=== PATIENT | female | born 1930 | race Caucasian/White ===

== ENCOUNTER 2018-06-01 23:30 | Inpatient (IN) | payer BC ==
--- NOTE | 2018-06-01 23:35 | PDOC ---
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 The patient reports she was trying to ambulate up the outdoor stairs of her daughters home when she missed a stair leading to the fall, denies dizziness or vertigo. The patient states she tried to catch herself and ended up twisting, landing on her back, denies LOC or head injury. The patient reports pain to the R. hip, that's aggravated by the movement of the leg. Denies neck pain. Denies numbness, tingling or loss of sensation. The patient reports an additional concern of new onset of scattered bruising to the B/l upper extremity within the last few weeks. The patient denies a prior history of easy bruising or previous falls. Allergies: NKDA PCP: None reported. <Leandra Adair - Last Filed: 06/02/18 00:21> <Marianna Ann - Last Filed: 06/02/18 03:11> - General Chief Complaint: Injury Stated Complaint: LEG PAIN Time Seen by Provider: 06/01/18 23:35 Past History <Leandra Adair - Last Filed: 06/02/18 00:21> <Marianna Ann - Last Filed: 06/02/18 03:11> - Past Medical History Allergies/Adverse Reactions: Allergies Allergy/AdvReac Type Severity Reaction Status Date / Time No Known Allergies Allergy Verified 06/01/18 23:33 Review of Systems - Review of Systems Able to Perform ROS?: Yes Comments:: 06/02/18 00:09 CONSTITUTIONAL: Absent: fever, no chills, no fatigue EYES: Absent: visual changes ENT: Absent: ear pain, no sore throat CARDIOVASCULAR: Absent: chest pain, no palpitations RESPIRATORY: Absent: cough, no SOB GI: Absent: abdominal pain, no nausea, no vomiting, no constipation, no diarrhea GENITOURINARY: Absent: dysuria, no frequency, no hematuria MUSKULOSKELETAL: (+) Chronic back pain. R. Hip pain worse with movement. Absent: no arthralgia, no myalgia SKIN: Absent: rash NEURO: Absent: headache <Leandra Adair - Last Filed: 06/02/18 00:21> *Physical Exam - Physical Exam Comments: 06/02/18 00:13 GENERAL: The patient is awake, alert, and fully oriented, in no acute distress. HEAD: Normal with no signs of trauma. EYES: Pupils equal, round and reactive to light, extraocular movements intact, sclera anicteric, conjunctiva clear with no pallor. ENT: Ears normal, nares patent, oropharynx clear without exudates. Moist mucous membranes. NECK: Normal range of motion, supple without lymphadenopathy, JVD, or masses. LUNGS: Breath sounds equal, clear to auscultation bilaterally. No wheeze/ crackles. HEART: Regular rate and rhythm, normal S1 and S2 without murmur or rub. ABDOMEN: Soft/nontender/nondistended. BS wnl. No guarding or rebound. No palpable masses. No hepatosplenomegaly. EXTREMITIES: (+) R. lower extremity: Moderate tenderness to palpation of the R. hip joint anteriorly. Pain with abduction and internal rotation of the R. leg. R. leg shortened compared to the L. leg. Rest of the extremity: Normal range of motion, no edema. No clubbing or cyanosis. No cords, erythema, or tenderness. NEUROLOGICAL: Cranial nerves II through XII grossly intact. Normal speech. PSYCH: Normal mood, normal affect. SKIN: Warm, dry with normal capillary refill. Scattered superficial ecchymosis of the R. and L. upper/lower extremities. No petechiae or rash evident. <Leandra Adair - Last Filed: 06/02/18 00:21> ED Treatment Course - LABORATORY CBC & Chemistry Diagram: 06/02/18 00:30 06/02/18 00:30 <Marianna Ann - Last Filed: 06/02/18 03:11> Progress Note - Progress Note Progress Note: Documentation has been prepared under my direction and personally reviewed by me in its entirety. I attest that this documented accurately reflects all work, treatment, procedures and medical decision making performed by me. <Marianna Ann - Last Filed: 06/02/18 03:11> Medical Decision Making - Medical Decision Making As noted above, this 88-year-old woman presents by ambulance with a history of trip and fall just prior to presentation: She was climbing up outdoor stairs of her daughters home when she lost her balance and fell on right hip area.No head/ neck injury. She presents with marked pain on movement of the right hip. Past medical history notable for mitral valve repair approximately 8 years ago ( [facility]), overactive bladder, macular degeneration of the left eye. No other significant medical problems are noted. No smoking for approx 50 years; No EtOH or other recreational drug use Exam as noted with marked tenderness of the right anterior hip joint and shortening of the right leg. Right hip/pelvic x-ray notable for displaced femoral neck (vs subcapital) hip fracture. Chest x-ray reveals no significant acute process Laboratory evaluation notable for normal CBC; chemistry profile reveals BUN of 50 and creatinine 1.6; random glucose is 131; otherwise, chemistry profile is unremarkable. Twelve-lead electrocardiogram performed: Normal sinus rhythm at 86 bpm; axis, wave forms and intervals are all normal. Rare PACs are noted Dr. Reji Antoine, covering for Dr Armenta orthopedic service, contacted and case discussed with him. Patient will be seen in the morning [facility] service contacted. 06/02/18 02:52 Case discussed with of [facility] service. Patient will be admitted (inpatient) to the service. 06/02/18 03:02 Was informed by NITISH Guzman that [facility] service is not director of collections for service medical admissions this week (patient's PCP is not in the local area). Case discussed with Dr. Luo, who is director of collections for service medical admissions.Pt admitted to her service. <Marianna Ann - Last Filed: 06/02/18 03:11> *DC/Admit/Observation/Transfer - Attestations Scribe Attestion: 06/02/18 00:13 Documentation prepared by Leandra Adair, acting as medical record librarian for Marianna Ann MD. <Leandra Adair - Last Filed: 06/02/18 00:21> - Discharge Dispostion Decision to Admit order: Yes <Marianna Ann - Last Filed: 06/02/18 03:11> Diagnosis at time of Disposition: Hip fracture, right Qualifiers: Encounter type: initial encounter Fracture type: closed Qualified Code(s): S72.001A - Fracture of unspecified part of neck of right femur, initial encounter for closed fracture - Discharge Dispostion Condition at time of disposition: Stable
[2018-06-02] MEDS ORDERED: HYDROmorphone HCL CARPU-JECT 1 MG/1 ML DISP.SYRIN IVPUSH ONE ×4 (00:19→02:53)
[2018-06-02] MEDS ORDERED: HYDROmorphone HCL CARPU-JECT 1 MG/1 ML DISP.SYRIN ONE ×2 (00:30→02:23)
[2018-06-02 01:32] LABS: BASO % 0.3 % (0-2.0); EOS % 2.7 % (0-4.5); HEMATOCRIT 38.9 % (32.4-45.2); LYMPH % 17.2 % (8-40); MCH 32.2 pg (25.7-33.7); MCHC 33.4 g/dl (32.0-36.0); MEAN CELL VOLUME 96.4 fl (80-96); MEAN PLT VOLUME 10.9 fl (7.5-11.1); MONO % 9.7 % (3.8-10.2); NEUT % 70.1 % (42.8-82.8); PLATELET COUNT 155 K/MM3 (134-434); RBC 4.04 M/mm3 (3.60-5.2); RDW 12.9 % (11.6-15.6); WHITE BLOOD COUNT 6.4 K/mm3 (4.0-10.0)
[2018-06-02 01:33] LABS: INR 0.98 (0.83-1.09); PROTHROMBIN TIME (PATIENT) 11.1 SEC (9.7-13.0)
[2018-06-02 01:43] LABS: ALBUMIN 3.9 g/dl (3.4-5.0); ALK PHOS 87 U/L (45-117); ANION GAP 7 (8-16); BILIRUBIN,TOTAL 0.4 mg/dL (0.2-1.0); BLOOD UREA NITROGEN 50 mg/dL (7-18); CALCIUM 8.9 mg/dL (8.5-10.1); CHLORIDE 112 mmol/L (98-107); CO2 26 mmol/L (21-32); CREATININE 1.6 mg/dL (0.55-1.02); GLUCOSE,RANDOM 131 mg/dL (74-106); POTASSIUM 4.9 mmol/L (3.5-5.1); SGOT/AST 17 U/L (15-37); SGPT/ALT 24 U/L (12-78); SODIUM 145 mmol/L (136-145); TOT PROT 6.8 g/dl (6.4-8.2)
[2018-06-02 04:57] VITALS: BMI 23.1
[2018-06-02 07:22] LABS: PH,URINE 5.5 (4.5-8); URINE APPEARANCE Clear; URINE BILIRUBIN Negative (NEGATIVE); URINE COLOR Yellow; URINE GLUCOSE (UA) Negative (NEGATIVE); URINE KETONE Trace (NEGATIVE); URINE LEUK ESTERASE TRACE (NEGATIVE); URINE NITRITE Negative (NEGATIVE); URINE PROTEIN Negative (NEGATIVE); URINE UROBILINOGEN 0.2 (0.2-1.0)
[2018-06-02] MEDS ORDERED: HYDROmorphone HCL CARPU-JECT 1 MG/1 ML DISP.SYRIN IVPB PRN (08:00)
[2018-06-02 08:05] LABS: EPI CELLS RARE /HPF; URINE BACTERIA RARE /hpf (NEGATIVE); URINE RBC 0-2 /hpf (0-3); URINE WBC 0-2 (0-5)
[2018-06-02] MEDS ORDERED: HYDROmorphone HCL CARPU-JECT 2 MG/1 ML DISP.SYRIN ONE ×2 (08:22→12:11)
[2018-06-02 08:51] LABS: INR 1.06 (0.82-1.09); PROTHROMBIN TIME (PATIENT) 11.8 SEC (10.2-13.0)
[2018-06-02 08:58] LABS: ALBUMIN 3.4 g/dl (3.5-5.0); ALK PHOS 66 U/L (32-92); ANION GAP 8 (8-16); BILIRUBIN,TOTAL 0.8 mg/dl (0.2-1.0); BLOOD UREA NITROGEN 47 mg/dl (7-18); CALCIUM 8.4 mg/dl (8.4-10.2); CHLORIDE 110 mmol/L (98-107); CO2 22 mmol/L (22-28); CREATININE 1.1 mg/dl (0.6-1.3); GLUCOSE,RANDOM 128 mg/dl (74-106); POTASSIUM 4.4 mmol/L (3.5-5.1); SGOT/AST 19 U/L (10-42); SGPT/ALT 17 U/L (10-40); SODIUM 140 mmol/L (136-145)
[2018-06-02 09:45] LABS: HEMATOCRIT 34.3 % (32.4-45.2); HEMOGLOBIN 11.6 GM/dL (10.7-15.3); MCH 32.5 pg (25.7-33.7); MCHC 33.9 g/dl (32.0-36.0); MEAN CELL VOLUME 95.8 fl (80-96); MEAN PLT VOLUME 10.9 fl (7.5-11.1); PLATELET COUNT 148 K/MM3 (134-434); RBC 3.58 M/mm3 (3.60-5.2); RDW 12.7 % (11.6-15.6); WHITE BLOOD COUNT 11.6 K/mm3 (4.0-10.0)
--- NOTE | 2018-06-02 10:14 | CONSULT ---
Consult - text type - Consultation Consultation Note: Asked to eval this 88F who sustained mechanical fall last night. Diagnosed with right hip fracture. She is a community ambulator without assistive device. PMH: reviewed in chart: overactive baldder, chronic low back pain Meds: reviewed in chart All: NKDA FH: n/c sH: neg cig/etoh ROS: no recent fevers/chills/weight loss PE: aaax3, nad follows commands overlying skin intac, no lesions breathing comforatble abdomen soft/nt rle shortened, externally rotated, distal pulses 2+, motor intact distally lle flexed, prom without pain b/l ue neuro intact, dp 2+ Xrays: right displaced femoral neck fractue Imp: 88F with right displaced FN fracture -will need hemiarthroplasty - Dr Simon to perform today pending medical clearance -R/B/A discussed in detail with the patient and daughter (over the phone) Shantel Devries. All questions answered -Risks include but not limited to anesthesia complications, infection, DVT, neurovascular injury, limb length discrepancy, malrotation, RLE fracture, postoperative dislocation, and persistent pain.
--- NOTE | 2018-06-02 14:12 | CON.CARD ---
Consult Consult Specialty:: cardiology Referred by:: Sherly Reason for Consultation:: preoperative evaluation - History of Present Illness Chief Complaint: hip fracture, preop evaluation History of Present Illness: 88F h/o mitral valve repair 8 years ago presenting with hip fracture. She complains of hip pain. No cp palps sob dizziness lightheadedness. - History Source History Provided By: Family Member - Past Medical History Cardio/Vascular: Yes: Other (h/o MV repair) Musculoskeletal: Yes: Chronic low back pain - Alcohol/Substance Use Hx Alcohol Use: No - Smoking History Smoking history: Never smoked Home Medications - Allergies Allergies/Adverse Reactions: Allergies Allergy/AdvReac Type Severity Reaction Status Date / Time No Known Allergies Allergy Verified 06/01/18 23:33 - Home Medications Home Medications: Ambulatory Orders Calcium 06/02/18 Toviaz 06/02/18 Vitamin D - 06/02/18 Review of Systems - Review of Systems Constitutional: reports: No Symptoms Eyes: reports: No Symptoms HENT: reports: No Symptoms Neck: reports: No Symptoms Cardiovascular: reports: No Symptoms Respiratory: reports: No Symptoms Gastrointestinal: reports: No Symptoms Genitourinary: reports: No Symptoms Musculoskeletal: reports: Joint Pain Integumentary: reports: No Symptoms Neurological: reports: No Symptoms Endocrine: reports: No Symptoms Hematology/Lymphatic: reports: No Symptoms Psychiatric: reports: No Symptoms Vital Signs: Vital Signs Temperature 98.6 F 06/02/18 04:00 Pulse Rate 95 H 06/02/18 04:00 Respiratory Rate 18 06/02/18 04:00 Blood Pressure 134/68 06/02/18 04:00 O2 Sat by Pulse Oximetry (%) 96 06/02/18 09:00 Constitutional: Yes: Well Nourished, No Distress, Calm Eyes: Yes: Conjunctiva Clear, EOM Intact HENT: Yes: Atraumatic, Normocephalic Neck: Yes: Supple Respiratory: Yes: Regular, CTA Bilaterally Gastrointestinal: Yes: Normal Bowel Sounds, Soft Cardiovascular: Yes: Regular Rate and Rhythm JVD: No Edema: No Peripheral Pulses WNL: Yes Neurological: Yes: Alert, Oriented Psychiatric: Yes: Alert, Oriented - Other Data Labs, Other Data: CBC, BMP 06/02/18 08:00 06/02/18 08:00 INR, PTT INR 1.06 (0.82-1.09) 06/02/18 08:00 Assessment/Plan CXR: no acute process EKG:
--- NOTE | 2018-06-02 14:58 | HP ---
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 The patient reports she was trying to ambulate up the outdoor stairs of her daughters home when she missed a stair leading to the fall, denies dizziness or vertigo. The patient states she tried to catch herself and ended up twisting, landing on her back, denies LOC or head injury. The patient reports pain to the R. hip, that's aggravated by the movement of the leg. Denies neck pain. Denies numbness, tingling or loss of sensation. pt not able to give history at this time, it is taken from er records - Past Medical History Cardiovascular: Yes: Other (h/o MV repair) Musculoskeletal: Yes: Chronic low back pain - Smoking History Smoking history: Never smoked - Alcohol/Substance Use Hx Alcohol Use: No Home Medications - Allergies Allergies/Adverse Reactions: Allergies Allergy/AdvReac Type Severity Reaction Status Date / Time No Known Allergies Allergy Verified 06/01/18 23:33 - Home Medications Home Medications: Ambulatory Orders Calcium 06/02/18 Toviaz 06/02/18 Vitamin D - 06/02/18 Physical Examination Vital Signs: Vital Signs Temperature 98.2 F 06/02/18 14:12 Pulse Rate 73 06/02/18 14:12 Respiratory Rate 18 06/02/18 14:12 Blood Pressure 113/61 06/02/18 14:12 O2 Sat by Pulse Oximetry (%) 96 06/02/18 09:00 Constitutional: Yes: Calm HENT: Yes: Atraumatic Neck: Yes: Supple Cardiovascular: Yes: Regular Rate and Rhythm Respiratory: Yes: CTA Bilaterally Gastrointestinal: Yes: Normal Bowel Sounds Labs: CBC, BMP 06/02/18 08:00 06/02/18 08:00 Problem List - Problems (1) Hip fracture, right Assessment/Plan: if patient is cleared by cardiology can proceed for surgery pt has uti cxs pending manoj start her on abx Code(s): S72.001A - FRACTURE OF UNSP PART OF NECK OF RIGHT FEMUR, INIT Qualifiers: Encounter type: initial encounter Fracture type: closed Qualified Code(s) : S72.001A - Fracture of unspecified part of neck of right femur, initial encounter for closed fracture (2) Fall Code(s): W19.XXXA - UNSPECIFIED FALL, INITIAL ENCOUNTER (3) UTI (urinary tract infection) Assessment/Plan: send cxs iv abx Code(s): N39.0 - URINARY TRACT INFECTION, SITE NOT SPECIFIED Assessment/Plan Laboratory Tests 06/01/18 06/02/18 06/02/18 06:30 00:30 00:30 WBC 6.4 RBC 4.04 Hgb 13.0 Hct 38.9 MCV 96.4 H MCH 32.2 MCHC 33.4 RDW 12.9 Plt Count 155 MPV 10.9 Absolute Neuts (auto) 4.5 Neutrophils % 70.1 Lymphocytes % 17.2 Monocytes % 9.7 Eosinophils % 2.7 Basophils % 0.3 Nucleated RBC % 0 PT with INR INR Sodium 145 Potassium 4.9 Chloride 112 H Carbon Dioxide 26 Anion Gap 7 L BUN 50 H Creatinine 1.6 H Creat Clearance w eGFR 30.49 Random Glucose 131 H Calcium 8.9 Total Bilirubin 0.4 AST 17 ALT 24 Alkaline Phosphatase 87 Total Protein 6.8 Albumin 3.9 Urine Color Yellow Urine Appearance Clear Urine pH 5.5 Ur Specific [place] 1.020 Urine Protein Negative Urine Glucose (UA) Negative Urine Ketones Trace Urine Blood Trace-lysed H Urine Nitrite Negative Urine Bilirubin Negative Urine Urobilinogen 0.2 Ur Leukocyte Esterase Trace H Urine RBC 0-2 Urine WBC 0-2 Ur Epithelial Cells Rare Urine Bacteria Rare Blood Type Antibody Screen 06/02/18 06/02/18 06/02/18 00:30 00:30 00:30 WBC RBC Hgb Hct MCV MCH MCHC RDW Plt Count MPV Absolute Neuts (auto) Neutrophils % Lymphocytes % Monocytes % Eosinophils % Basophils % Nucleated RBC % PT with INR 11.10 INR 0.98 Sodium Potassium Chloride Carbon Dioxide Anion Gap BUN Creatinine Creat Clearance w eGFR Random Glucose Calcium Total Bilirubin AST ALT Alkaline Phosphatase Total Protein Albumin Urine Color Urine Appearance Urine pH Ur Specific [place] Urine Protein Urine Glucose (UA) Urine Ketones Urine Blood Urine Nitrite Urine Bilirubin Urine Urobilinogen Ur Leukocyte Esterase Urine RBC Urine WBC Ur Epithelial Cells Urine Bacteria Blood Type A POSITIVE A POSITIVE Antibody Screen Negative Negative 06/02/18 06/02/18 06/02/18 03:03 08:00 08:00 WBC 11.6 H RBC 3.58 L Hgb 11.6 Hct 34.3 MCV 95.8 MCH 32.5 MCHC 33.9 RDW 12.7 Plt Count 148 MPV 10.9 Absolute Neuts (auto) Neutrophils % Lymphocytes % Monocytes % Eosinophils % Basophils % Nucleated RBC % PT with INR 11.8 INR 1.06 Sodium Potassium Chloride Carbon Dioxide Anion Gap BUN Creatinine Creat Clearance w eGFR Random Glucose Calcium Total Bilirubin AST ALT Alkaline Phosphatase Total Protein Albumin Urine Color Urine Appearance Urine pH Ur Specific [place] Urine Protein Urine Glucose (UA) Urine Ketones Urine Blood Urine Nitrite Urine Bilirubin Urine Urobilinogen Ur Leukocyte Esterase Urine RBC Urine WBC Ur Epithelial Cells Urine Bacteria Blood Type A POSITIVE Antibody Screen 06/02/18 08:00 WBC RBC Hgb Hct MCV MCH MCHC RDW Plt Count MPV Absolute Neuts (auto) Neutrophils % Lymphocytes % Monocytes % Eosinophils % Basophils % Nucleated RBC % PT with INR INR Sodium 140 Potassium 4.4 Chloride 110 H Carbon Dioxide 22 Anion Gap 8 BUN 47 H Creatinine 1.1 Creat Clearance w eGFR 46.98 Random Glucose 128 H Calcium 8.4 Total Bilirubin 0.8 AST 19 ALT 17 Alkaline Phosphatase 66 Total Protein 6.0 L Albumin 3.4 L Urine Color Urine Appearance Urine pH Ur Specific [place] Urine Protein Urine Glucose (UA) Urine Ketones Urine Blood Urine Nitrite Urine Bilirubin Urine Urobilinogen Ur Leukocyte Esterase Urine RBC Urine WBC Ur Epithelial Cells Urine Bacteria Blood Type Antibody Screen Active Medications Generic Name Dose Route Start Last Admin Trade Name Chris PRN Reason Stop Dose Admin Heparin Sodium (Porcine) 5,000 unit 06/02/18 22:00 Heparin - SQ BID [facility] Hydromorphone HCl 1 mg 06/02/18 08:00 06/02/18 12:00 Dilaudid Injection - IVPB 1 mg Q4H PRN Administration PAIN LEVEL 6-10 Active Medications Generic Name Dose Route Start Last Admin Trade Name Govindq PRN Reason Stop Dose Admin Acetaminophen 650 mg 06/02/18 19:32 Tylenol - PO Q6H PRN PAIN LEVEL 1 - 3 Docusate Sodium 100 mg 06/02/18 22:00 Colace - PO TID [facility] Enoxaparin Sodium 40 mg 06/03/18 10:00 Lovenox - SQ DAILY [facility] Fentanyl 25 mcg 06/02/18 18:14 Sublimaze Injection - IVPUSH [id number] PRN PAIN-PACU ORDER X 4 DOSES ONLY Ferrous Sulfate 325 mg 06/02/18 19:45 Feosol - PO BIDWM DEANNA Cefazolin Sodium 1 gm in 50 mls @ 100 mls/hr 06/03/18 02:00 Ancef 1 Gm Premixed Ivpb - IVPB 06/03/18 10:29 Q8H-IV DEANNA Ondansetron HCl 4 mg 06/02/18 18:14 Zofran Injection IVPUSH Q6H PRN NAUSEA AND/OR VOMITING Oxycodone/Acetaminophen 1 combo 06/02/18 19:32 Percocet 5/325 - PO Q6H PRN PAIN LEVEL 4 - 6
[2018-06-02] MEDS ORDERED: CEFTRIAXONE 1 GM/50 ML BAG IVPB SCH (15:00)
--- NOTE | 2018-06-02 15:34 | PN ---
Progress Note (short form) - Note Progress Note: Called to assess patient for preoperative evaluation for hip surgery. Patient was taken to the OR per direction of the surgical team prior to evaluation as initially requested.
[2018-06-02] MEDS ORDERED: SUCCINYLCHOLINE CHLORIDE 200 MG/10 ML VIAL ONE (15:42)
[2018-06-02] MEDS ORDERED: PROPOFOL 20 ML ONE (15:42)
--- NOTE | 2018-06-02 15:53 | OP ---
Operative Note - Note: Operative Date: 06/02/18 Pre-Operative Diagnosis: right hip subcapital fracture Operation: right hip hemiarthroplasty Implants: mine cemented stem size 6 with 0mm neck insert and 48mm head Post-Operative Diagnosis: Same as Pre-op Surgeon: Alex Simon Anesthesiologist/ELECTRICAL ACCESSORIES ASSEMBLER: Kim Saldana Anesthesia: Spinal Estimated Blood Loss (mls): 100 Operative Report Dictated: Yes
[2018-06-02] MEDS ORDERED: ePHEDrine SULFATE 50 MG/1 ML AMPULE ONE (16:07)
[2018-06-02] MEDS ORDERED: PHENYLEPHRINE HCL 10 MG/1 ML SINGLE DOSE VIAL ONE (16:07)
[2018-06-02] MEDS ORDERED: ceFAZolin SODIUM 1 GM VIAL ONE (16:11)
[2018-06-02] MEDS ORDERED: ONDANSETRON 4 MG/2 ML VIAL ONE (16:11)
[2018-06-02] MEDS ORDERED: DEXAMETHASONE SOD PHOSPHATE 4 MG/1 ML VIAL ONE (16:11)
--- NOTE | 2018-06-02 16:49 | EKG ---
Test Reason : Blood Pressure : / mmHG Vent. Rate : 086 BPM Atrial Rate : 086 BPM P-R Int : 152 ms QRS Dur : 082 ms QT Int : 374 ms P-R-T Axes : 083 011 065 degrees QTc Int : 447 ms SINUS RHYTHM WITH PREMATURE ATRIAL COMPLEXES NONSPECIFIC ST ABNORMALITY ABNORMAL ECG NO PREVIOUS ECGS AVAILABLE Confirmed by QUOC GONZALEZ MD ([id number]) on 06/02/2018 3:50:17 PM Referred By: MD SHUKLA Confirmed By:QUOC GONZALEZ MD
[2018-06-02] MEDS ORDERED: ONDANSETRON 4 MG/2 ML VIAL IVPUSH PRN (18:14)
[2018-06-02] MEDS ORDERED: HEPARIN NA (PORCINE) 5,000 UNITS/ML 1ML VIAL SQ SCH (22:00)
[2018-06-02] MEDS: ACETAMINOPHEN 325 MG TABLET (FP) PO PRN (22:02)
[2018-06-02] MEDS: DOCUSATE SODIUM 100 MG CAPSULE (FP) PO SCH (22:03)
[2018-06-02] MEDS: FERROUS SO4 325 MG TABLET (FP) PO SCH (22:03)
[2018-06-03] MEDS: CEFAZOLIN 1 GM/D5W 1 GM/50 ML BAG IVPB SCH ×2 (01:59→10:22)
[2018-06-03] MEDS: DOCUSATE SODIUM 100 MG CAPSULE (FP) PO SCH ×3 (05:56→21:07)
--- NOTE | 2018-06-03 07:42 | PN ---
Progress Note (short form) - Note Progress Note: Pt lying comf in bed Last Vital Signs Temp Pulse Resp BP Pulse Ox 98.8 F 85 18 120/56 97 06/03/18 06:00 06/03/18 06:00 06/03/18 06:00 06/03/18 06:00 06/03/18 06:00 RLE dressing cdi calves soft NT NVID labs p a/p: pod 1 s/p R hip luz elena -oob -pt -f/u cbc -dvt proph -pain control, minimize narcotics
[2018-06-03 07:59] LABS: HEMATOCRIT 31.8 % (32.4-45.2); HEMOGLOBIN 9.8 GM/dl (10.7-15.3); MCH 30.2 pg (25.7-33.7); MCHC 30.8 g/dl (32.0-36.0); MEAN CELL VOLUME 97.9 fl (80-96); MEAN PLT VOLUME 11.1 fl (7.5-11.1); PLATELET COUNT 134 K/MM3 (134-434); RBC 3.25 M/mm3 (3.60-5.2); RDW 12.2 % (11.6-15.6)
[2018-06-03 08:17] LABS: ANION GAP 7 (8-16); BLOOD UREA NITROGEN 35 mg/dl (7-18); CALCIUM 8.2 mg/dl (8.4-10.2); CHLORIDE 110 mmol/L (98-107); CO2 23 mmol/L (22-28); CREATININE 1.1 mg/dl (0.6-1.3); GLUCOSE,RANDOM 108 mg/dl (74-106); POTASSIUM 4.5 mmol/L (3.5-5.1); SODIUM 140 mmol/L (136-145)
--- NOTE | 2018-06-03 09:05 | PN ---
Progress Note (short form) - Note Progress Note: ANESTHESIOLOGY POST-OP CHECK 88F s/p right hip hemiarthroplasty under spinal anesthesia POD #1. No acute complaints. Pain 2/10 and tolerable. Denies N/V, headache. Denies numbness, weakness. Vital Signs Temperature 98.8 F 06/03/18 06:00 Pulse Rate 85 06/03/18 06:00 Respiratory Rate 18 06/03/18 06:00 Blood Pressure 120/56 06/03/18 06:00 O2 Sat by Pulse Oximetry (%) 97 06/03/18 06:00 Active Medications Acetaminophen (Tylenol -) 650 mg PO Q6H PRN PRN Reason: PAIN LEVEL 1 - 3 Last Admin: 06/02/18 22:02 Dose: 650 mg Docusate Sodium (Colace -) 100 mg PO TID [facility] Last Admin: 06/03/18 05:56 Dose: 100 mg Enoxaparin Sodium (Lovenox -) 40 mg SQ DAILY [facility] Ferrous Sulfate (Feosol -) 325 mg PO BIDWM [facility] Last Admin: 06/02/18 22:03 Dose: 325 mg Cefazolin Sodium (Ancef 1 Gm Premixed Ivpb -) 1 gm in 50 mls @ 100 mls/hr IVPB Q8H-IV DEANNA Stop: 06/03/18 10:29 Last Admin: 06/03/18 01:59 Dose: 100 mls/hr Ondansetron HCl (Zofran Injection) 4 mg IVPUSH Q6H PRN PRN Reason: NAUSEA AND/OR VOMITING Oxycodone/Acetaminophen (Percocet 5/325 -) 1 combo PO Q6H PRN PRN Reason: PAIN LEVEL 4 - 6 Gen: awake, alert. Ext: No apprent LE sensorimotor deficit No apparent anesthesia complications. Pain well controlled. Continue management as per primary team.
[2018-06-03] MEDS: FERROUS SO4 325 MG TABLET (FP) PO SCH ×2 (10:21→18:43)
[2018-06-03] MEDS: ENOXAPARIN NA (PORCINE) 40 MG/0.4 ML DISP.SYRIN SQ SCH (10:22)
[2018-06-03 10:44] LABS: OVALOCYTE 1+; PLATELET ESTIMATE ADEQUATE
--- NOTE | 2018-06-03 10:45 | OP ---
DATE OF OPERATION: 06/02/2018 PREOPERATIVE DIAGNOSIS: Right hip subcapital fracture. POSTOPERATIVE DIAGNOSIS: Right hip subcapital fracture. PROCEDURE: Right hip hemiarthroplasty. SURGEON: Alex Simon MD SUPERVISOR WATER [employer]ATMENT PLANT: Bob Armenta MD, physician, whose skillful assistance was necessary for the safe and timely performance of this procedure. Dr. Armenta was able to provide limb positioning, provide retraction, as well as assist in the removal of the bone fragments and insertion of orthopedic fixation hardware. ANESTHESIA: Spinal. POSTOPERATIVE CONDITION: Stable. COMPLICATIONS: None. IMPLANTS: Broussard cemented stem size 6 with neutral 0-mm neck insert and 48-mm head. INDICATIONS: This is a pleasant 88-year-old woman who suffered a fall. She was found to have a displaced femoral neck fracture. Treatment options including nonoperative versus operative management were reviewed. Operative management was suggested. A conversation was carried out with the patient by Dr. Reyes, and I had spoken with her daughter. Reviewed surgical risks including bleeding, infection, neurovascular injury, need for further surgery, postoperative pain and stiffness, periprosthetic fracture, hip instability. We discussed the use of hip precautions after surgery. We reviewed medical risks including heart attack, stroke, DVT, PE, and . We reviewed the recovery from surgery and continued fall risk after an injury like this. I addressed the patients and familys questions and concerns. They voiced understanding and elected to proceed. DESCRIPTION OF PROCEDURE: The patient was brought to the operating room where spinal anesthesia was administered. She was placed in the lateral decubitus position, careful to pad all the bony prominences. The right lower extremity was then prepped and draped in the usual sterile fashion. A preoperative antibiotic was given, and the usual time-out procedure was performed. At this point, the incision was planned out over the greater trochanter. It was carried down through skin to subcutaneous tissue. Electrocautery was used to maintain hemostasis. Spreading was continued until the fascia was identified. The fascia was then split in line with its fibers. The was now reflected posteriorly. The Charnley retractor was inserted. Electrocautery was now used to dissect posteriorly on the proximal femur. The capsule and external rotators were elevated as a single layer. The layer was then tagged with No. 1 Vicryl. The neck was now identified and then cut at 45 degrees to the shaft. Neck fragment was removed. The head was now identified, and a corkscrew device was placed. The head was extracted. It was measured, and a 48-mm size was chosen. The 48-mm spacer or trial was placed in and was found to have good feel. It was removed. Attention was now turned to the proximal femur. The femoral elevator was placed. A box osteotome was used to gain lateral entry into the femoral canal. A canal finder was then passed as well as a second expansion envelope maker hand. The broaching was now started with a size 1 progressing up to a size 6 where a good fit was achieved. The broach was now removed and the canal was prepared. A cement restrictor was inserted. Canal was brushed. The cement was mixed and was injected into the canal. The stem was then inserted. The cement was allowed to harden. Excess cement was debrided. The trial components were now loaded on with a 0-mm neck and a 48-mm head. The hip was reduced. Stability was checked both anteriorly and posteriorly. Excellent stability was achieved and no excessive tightness was noted. The joint was now re-dislocated. The Law taper was cleaned off and then the final components were malleted into place. The hip was now reduced again and retested with good stability. Joint was now copiously irrigated with pulse lavage. The capsule and external rotators were repaired using two 2-0 drill holes through the posterior aspect of the greater trochanter. The fascia was closed using No. 1 Vicryl. The subcutaneous tissue was approximated using 0 and 2-0 Vicryl. The skin was closed using 3-0 nylon. Sterile dressing was placed. The patient was transferred to the recovery room in stable condition. Ashly [id number]
[2018-06-03] MEDS ORDERED: CEFTRIAXONE 1 GM/50 ML BAG IVPB SCH (14:00)
--- NOTE | 2018-06-03 18:22 | PN ---
Progress Note, Physician History of Present Illness: doing well - Current Medication List Current Medications: Active Medications Acetaminophen (Tylenol -) 650 mg PO Q6H PRN PRN Reason: PAIN LEVEL 1 - 3 Last Admin: 06/02/18 22:02 Dose: 650 mg Docusate Sodium (Colace -) 100 mg PO TID [facility] Last Admin: 06/03/18 14:11 Dose: 100 mg Enoxaparin Sodium (Lovenox -) 40 mg SQ DAILY [facility] Last Admin: 06/03/18 10:22 Dose: 40 mg Ferrous Sulfate (Feosol -) 325 mg PO BIDWM [facility] Last Admin: 06/03/18 10:21 Dose: 325 mg Ondansetron HCl (Zofran Injection) 4 mg IVPUSH Q6H PRN PRN Reason: NAUSEA AND/OR VOMITING Oxycodone/Acetaminophen (Percocet 5/325 -) 1 combo PO Q6H PRN PRN Reason: PAIN LEVEL 4 - 6 Last Admin: 06/03/18 10:20 Dose: 1 combo - Objective Vital Signs: Vital Signs Temperature 99.1 F 06/03/18 14:03 Pulse Rate 83 06/03/18 14:03 Respiratory Rate 17 06/03/18 14:03 Blood Pressure 97/47 06/03/18 14:03 O2 Sat by Pulse Oximetry (%) 90 L 06/03/18 14:03 Constitutional: Yes: No Distress HENT: Yes: Atraumatic Neck: Yes: Supple Cardiovascular: Yes: Regular Rate and Rhythm Respiratory: Yes: CTA Bilaterally Gastrointestinal: Yes: Normal Bowel Sounds Extremities: Yes: WNL, Other (surgery site look clean) Neurological: Yes: Alert, Oriented Labs: CBC, BMP 06/03/18 07:30 06/03/18 07:30 INR, PTT INR 1.06 (0.82-1.09) 06/02/18 08:00 Problem List - Problems (1) Hip fracture, right Assessment/Plan: s/p surgery doing well pt need snf Code(s): S72.001A - FRACTURE OF UNSP PART OF NECK OF RIGHT FEMUR, INIT Qualifiers: Encounter type: initial encounter Fracture type: closed Qualified Code(s) : S72.001A - Fracture of unspecified part of neck of right femur, initial encounter for closed fracture (2) Fall Code(s): W19.XXXA - UNSPECIFIED FALL, INITIAL ENCOUNTER (3) UTI (urinary tract infection) Assessment/Plan: send cxs iv abx Code(s): N39.0 - URINARY TRACT INFECTION, SITE NOT SPECIFIED
[2018-06-04] MEDS: DOCUSATE SODIUM 100 MG CAPSULE (FP) PO SCH ×3 (06:11→21:03)
[2018-06-04] MEDS: ENOXAPARIN NA (PORCINE) 40 MG/0.4 ML DISP.SYRIN SQ SCH (09:46)
[2018-06-04] MEDS: FERROUS SO4 325 MG TABLET (FP) PO SCH ×2 (09:51→17:30)
--- NOTE | 2018-06-04 15:35 | PN ---
Progress Note, Physician History of Present Illness: doing well - Current Medication List Current Medications: Active Medications Acetaminophen (Tylenol -) 650 mg PO Q6H PRN PRN Reason: PAIN LEVEL 1 - 3 Last Admin: 06/02/18 22:02 Dose: 650 mg Docusate Sodium (Colace -) 100 mg PO TID [facility] Last Admin: 06/04/18 06:11 Dose: 100 mg Enoxaparin Sodium (Lovenox -) 40 mg SQ DAILY [facility] Last Admin: 06/04/18 09:46 Dose: 40 mg Ferrous Sulfate (Feosol -) 325 mg PO BIDWM [facility] Last Admin: 06/04/18 09:51 Dose: 325 mg Ondansetron HCl (Zofran Injection) 4 mg IVPUSH Q6H PRN PRN Reason: NAUSEA AND/OR VOMITING Oxycodone/Acetaminophen (Percocet 5/325 -) 1 combo PO Q6H PRN PRN Reason: PAIN LEVEL 4 - 6 Last Admin: 06/04/18 09:46 Dose: 1 combo - Objective Vital Signs: Vital Signs Temperature 98.5 F 06/04/18 14:13 Pulse Rate 76 06/04/18 14:13 Respiratory Rate 17 06/04/18 14:13 Blood Pressure 92/58 06/04/18 14:13 O2 Sat by Pulse Oximetry (%) 96 06/04/18 08:26 Constitutional: Yes: No Distress HENT: Yes: Atraumatic Neck: Yes: Supple Cardiovascular: Yes: Regular Rate and Rhythm Respiratory: Yes: CTA Bilaterally Gastrointestinal: Yes: Normal Bowel Sounds Extremities: Yes: WNL Neurological: Yes: Alert, Oriented Labs: CBC, BMP 06/03/18 07:30 06/03/18 07:30 INR, PTT INR 1.06 (0.82-1.09) 06/02/18 08:00 Problem List - Problems (1) Hip fracture, right Assessment/Plan: s/p surgery doing well pt need snf Code(s): S72.001A - FRACTURE OF UNSP PART OF NECK OF RIGHT FEMUR, INIT Qualifiers: Encounter type: initial encounter Fracture type: closed Qualified Code(s) : S72.001A - Fracture of unspecified part of neck of right femur, initial encounter for closed fracture (2) Fall Code(s): W19.XXXA - UNSPECIFIED FALL, INITIAL ENCOUNTER (3) UTI (urinary tract infection) Assessment/Plan: send cxs iv abx Code(s): N39.0 - URINARY TRACT INFECTION, SITE NOT SPECIFIED
[2018-06-04] MEDS: ACETAMINOPHEN 325 MG TABLET (FP) PO PRN (20:43)
[2018-06-05] MEDS: DOCUSATE SODIUM 100 MG CAPSULE (FP) PO SCH ×3 (05:53→22:11)
[2018-06-05] MEDS: FERROUS SO4 325 MG TABLET (FP) PO SCH ×2 (09:09→16:52)
[2018-06-05] MEDS: ENOXAPARIN NA (PORCINE) 40 MG/0.4 ML DISP.SYRIN SQ SCH (09:09)
[2018-06-05] MEDS ORDERED: cefTRIAXone 1 GM/50 ML BAG (PRE-DOCKED) IVPB SCH (11:00)
--- NOTE | 2018-06-05 11:39 | PN ---
Progress Note (short form) - Note Progress Note: sititng in chair awake, alert vss dressing clean nvid h/h stable POD#3 -oob/pt/wbat/dvt prophylaxis -dispo when bed available
--- NOTE | 2018-06-05 15:26 | PN ---
Progress Note, Physician History of Present Illness: doing well - Current Medication List Current Medications: Active Medications Acetaminophen (Tylenol -) 650 mg PO Q6H PRN PRN Reason: PAIN LEVEL 1 - 3 Last Admin: 06/04/18 20:43 Dose: 650 mg Ceftriaxone Sodium (Rocephin 1gm Ivpb (Pre-Docked)) 1 gm IVPB DAILY [facility] Docusate Sodium (Colace -) 100 mg PO TID [facility] Last Admin: 06/05/18 05:53 Dose: 100 mg Enoxaparin Sodium (Lovenox -) 40 mg SQ DAILY [facility] Last Admin: 06/05/18 09:09 Dose: 40 mg Ferrous Sulfate (Feosol -) 325 mg PO BIDWM [facility] Last Admin: 06/05/18 09:09 Dose: 325 mg Ondansetron HCl (Zofran Injection) 4 mg IVPUSH Q6H PRN PRN Reason: NAUSEA AND/OR VOMITING Oxycodone/Acetaminophen (Percocet 5/325 -) 1 combo PO Q6H PRN PRN Reason: PAIN LEVEL 4 - 6 Last Admin: 06/04/18 09:46 Dose: 1 combo - Objective Vital Signs: Vital Signs Temperature 98.7 F 06/05/18 14:31 Pulse Rate 68 06/05/18 14:31 Respiratory Rate 17 06/05/18 14:31 Blood Pressure 124/60 06/05/18 14:31 O2 Sat by Pulse Oximetry (%) 95 06/05/18 06:42 Constitutional: Yes: No Distress HENT: Yes: Atraumatic Neck: Yes: Supple Cardiovascular: Yes: Regular Rate and Rhythm Respiratory: Yes: CTA Bilaterally Gastrointestinal: Yes: Normal Bowel Sounds Extremities: Yes: WNL Neurological: Yes: Alert, Oriented Labs: CBC, BMP 06/03/18 07:30 06/03/18 07:30 INR, PTT INR 1.06 (0.82-1.09) 06/02/18 08:00 Problem List - Problems (1) Hip fracture, right Assessment/Plan: s/p surgery doing well pt need snf Code(s): S72.001A - FRACTURE OF UNSP PART OF NECK OF RIGHT FEMUR, INIT Qualifiers: Encounter type: initial encounter Fracture type: closed Qualified Code(s) : S72.001A - Fracture of unspecified part of neck of right femur, initial encounter for closed fracture (2) Fall Code(s): W19.XXXA - UNSPECIFIED FALL, INITIAL ENCOUNTER (3) UTI (urinary tract infection) Assessment/Plan: send cxs iv abx Code(s): N39.0 - URINARY TRACT INFECTION, SITE NOT SPECIFIED
[2018-06-05] MEDS: cefTRIAXone 1 GM/50 ML BAG (PRE-DOCKED) IVPB SCH (16:52)
[2018-06-06] MEDS: DOCUSATE SODIUM 100 MG CAPSULE (FP) PO SCH ×2 (06:39→14:51)
[2018-06-06] MEDS: FERROUS SO4 325 MG TABLET (FP) PO SCH ×2 (10:23→16:47)
[2018-06-06] MEDS: ENOXAPARIN NA (PORCINE) 40 MG/0.4 ML DISP.SYRIN SQ SCH (10:23)
[2018-06-06] MEDS: cefTRIAXone 1 GM/50 ML BAG (PRE-DOCKED) IVPB SCH (10:24)
--- NOTE | 2018-06-06 12:50 | PATH ---
Surgical Pathology Report Patient Name: MICHELLE CHURCHILL Med. Rec. #: [id number] /Age/Gender: 1930 (Age: 88) / F Account: [id number] Location: [facility] Taken: 06/02/2018 Received: 06/02/2018 Reported: 06/06/2018 Physicians: Ashly Shoemaker M.D. Specimen(s) Received RIGHT HIP FEMORAL HEAD Clinical History Right hip fracture Final Diagnosis Bone, femoral head, right, hemiarthroplasty: [employer] HEMOR[employer] consistent with fracture. Electronically Signed Jasmyne Champagne M.D. Gross Description Received in formalin, labeled "right hip femoral head," is a 4.7 x 4.7 x 4.1 cm. femoral head with no femoral neck attached. The margin of resection is red-brown, jagged and hemorrhagic. No areas of eburnation are identified. The articular surface is guerrero-yellow and focally granular. The underlying trabecular bone is yellow, hard and focally hemorrhagic. Separately received within the same container is a 5.7 x 5.0 x 1.4 cm aggregate of guerrero-brown, hemorrhagic bone fragments, consistent with a fragmented femoral neck. A textile machinery sales representative section is submitted in one cassette, following decalcification. 06/03/201806/03/2018
--- NOTE | 2018-06-06 15:01 | DS ---
Physical Examination Vital Signs: Vital Signs Temperature 98.6 F 06/06/18 14:00 Pulse Rate 71 06/06/18 14:00 Respiratory Rate 18 06/06/18 14:00 Blood Pressure 121/68 06/06/18 14:00 O2 Sat by Pulse Oximetry (%) 98 06/06/18 14:00 Labs: CBC, BMP 06/03/18 07:30 06/03/18 07:30 Discharge Summary Reason For Visit: RIGHT HIP FRACTURE. Current Active Problems Fall (Acute) Hip fracture, right (Acute) UTI (urinary tract infection) (Acute) Condition: Stable - Instructions - Home Medications Comprehensive Discharge Medication List: Ambulatory Orders Calcium 06/02/18 Toviaz 06/02/18 Vitamin D - 06/02/18
--- NOTE | 2018-06-06 19:56 | PN ---
Progress Note, Physician - Current Medication List Current Medications: Active Medications Acetaminophen (Tylenol -) 650 mg PO Q6H PRN PRN Reason: PAIN LEVEL 1 - 3 Last Admin: 06/04/18 20:43 Dose: 650 mg Ceftriaxone Sodium (Rocephin 1gm Ivpb (Pre-Docked)) [address] [facility] Last Admin: 06/06/18 10:24 Dose: 1 gm Docusate Sodium (Colace -) [address] [facility] Last Admin: 06/06/18 14:51 Dose: 100 mg Enoxaparin Sodium (Lovenox -) [address] [facility] Last Admin: 06/06/18 10:23 Dose: 40 mg Ferrous Sulfate (Feosol -) [address] [facility] Last Admin: 06/06/18 16:47 Dose: 325 mg Ondansetron HCl (Zofran Injection) 4 mg IVPUSH Q6H PRN PRN Reason: NAUSEA AND/OR VOMITING - Objective Vital Signs: Vital Signs Temperature 98.6 F 06/06/18 14:00 Pulse Rate 71 06/06/18 14:00 Respiratory Rate 06/06/18 14:00 Blood Pressure 121/68 06/06/18 14:00 O2 Sat by Pulse Oximetry (%) 98 06/06/18 14:00 Constitutional: Yes: No Distress HENT: Yes: Atraumatic Neck: Yes: Supple Cardiovascular: Yes: Regular Rate and Rhythm Respiratory: Yes: CTA Bilaterally Extremities: Yes: WNL Neurological: Yes: Alert, Oriented Labs: CBC, BMP 06/03/18 07:30 06/03/18 07:30 INR, PTT INR 1.06 (0.82-1.09) 06/02/18 08:00 Problem List - Problems (1) Hip fracture, right Assessment/Plan: s/p surgery doing well pt need snf Code(s): S72.001A - FRACTURE OF UNSP PART OF NECK OF RIGHT FEMUR, INIT Qualifiers: Encounter type: initial encounter Fracture type: closed Qualified Code(s) : S72.001A - Fracture of unspecified part of neck of right femur, initial encounter for closed fracture (2) Fall Code(s): W19.XXXA - UNSPECIFIED FALL, INITIAL ENCOUNTER (3) UTI (urinary tract infection) Assessment/Plan: cxs negative dc abx Code(s): N39.0 - URINARY TRACT INFECTION, SITE NOT SPECIFIED
[2018-06-06 22:42] VITALS: TEMP 98.9
[2018-06-07 06:28] VITALS: BP 126/61; PULSE 67
[2018-06-07] MEDS: FERROUS SO4 325 MG TABLET (FP) PO SCH (08:09)
[2018-06-07] MEDS: ENOXAPARIN NA (PORCINE) 40 MG/0.4 ML DISP.SYRIN SQ SCH (10:00)
--- NOTE | 2018-06-07 16:24 | DS ---
Physical Examination Vital Signs: Vital Signs Temperature 98.9 F 06/07/18 06:00 Pulse Rate 67 06/07/18 06:00 Respiratory Rate 18 06/07/18 06:00 Blood Pressure 126/61 06/07/18 06:00 O2 Sat by Pulse Oximetry (%) 98 06/07/18 09:00 Labs: CBC, BMP 06/03/18 07:30 06/03/18 07:30 Discharge Summary Reason For Visit: RIGHT HIP FRACTURE. Condition: Stable - Instructions Disposition: [facility] - Home Medications Comprehensive Discharge Medication List: Ambulatory Orders Calcium 06/02/18 Toviaz 06/02/18 Vitamin D - 06/02/18 me snf
== END 2018-06-07 10:45 | DRG 470 ==
LOC: FER 23:30 → FM/S 06-02 02:49 → UNDOADMIN 06-02 02:56 → FM/S 06-02 02:56
PROVIDERS: ADMIT Internal Medicine; ATTEND Internal Medicine
PROC: 0SRR0J9 Replacement of Right Hip Joint, Femoral Surface with Synthetic Substitute, Cemented, Open Approach (ICD-10-PCS; principal; 2018-06-02 16:24)
DX: S72.001A Fracture of unspecified part of neck of right femur, initial encounter for closed fracture (principal); N39.0 Urinary tract infection, site not specified; M54.5 Low back pain; N32.81 Overactive bladder; W18.30XA Fall on same level, unspecified, initial encounter; Y92.098 Other place in other non-institutional residence as the place of occurrence of the external cause
CPT/HCPCS: 36415; 71045-TC-FY; 73502-TC-RT; 73523-TC-FY; 80048; 80053; 81003; 81015; 85025; 85027; 85610; 86850; 86900; 86901; 87086; 88305-TC; 88311-TC; 93005; 94760; 97116-GP; 97162-GP; 99281-25